=== PATIENT | male | born 1970 | race Caucasian/White ===

== ENCOUNTER → 2018-12-11 | Outpatient (CLI) | payer OTHER ==
[~2018-12-11] MED LIST: FLUO20CA25 PO; HYDR-700 PO; PANT40TA2 PO; TRAZ-222 PO
--- NOTE | 2018-12-11 12:01 | Diagnostic Imaging Report ---
EXAMINATION: Right shoulder at 10:38 a.m. INDICATION: Shoulder pain. TECHNIQUE: Three views were obtained. COMPARISON: There are no prior studies available for comparison. FINDINGS: There is no fracture, dislocation, or acute bony abnormality evident. There is mild degenerative disease of the glenohumeral and acromioclavicular joints. The soft tissues are unremarkable. IMPRESSION: 1. There is no evidence for an acute bony abnormality. 2. If there is clinical concern regarding injury to the rotator cuff or labrum, then MRI would be recommended for further evaluation. Dictated by: Dictated on workstation # [id number]
== END ==
LOC: RAD 10:20
PROVIDERS: ATTEND Nurse Practitioner Family
DX: M25.511 Pain in right shoulder (principal)
CPT/HCPCS: 73030

== ENCOUNTER 2018-12-17 12:48 | Day surgery (SDC) | payer OTHER ==
[2018-12-17] VITALS (18 sets, daily range): BP systolic 119–157; BP diastolic 70–91
[~2018-12-17] VITALS: Ht 188 cm; Wt 96.2 kg
--- NOTE | 2018-12-17 12:57 | Progress Note-Pre Operative ---
Pre-Operative Progress Note H&P Reviewed The H&P was reviewed, patient examined and no changes noted. Date Seen by Provider: Dec 17, 2018 Time Seen by Provider: 12:55 Date H&P Reviewed: Dec 17, 2018 Time H&P Reviewed: 12:55 Pre-Operative Diagnosis: MARY LE MD Dec 17, 2018 12:57
--- NOTE | 2018-12-17 12:57 | Conscious Sedation/ASA ---
Conscious Sedation Pre-Proced Time 12:55 ASA Score 2 For ASA 3 and 4: Consider anesthesia and medical clearance. Also, for patients with a history of failed moderate sedation consider anesthesia. Airway Lungs Heart ASA score ASA 1: a normal healthy patient ASA 2: a patient with a mild systemic disease (mid diabetes, controlled hypertension, obesity ASA 3: a patient with a severe systemic disease that limits activity (angina, COPD, prior Myocardial infarction) ASA 4: a patient with an incapacitating disease that is a constant threat to life (CHF, renal failure) ASA 5: a moribund patient not expected to survive 24 hrs. (ruptured aneurysm) ASA 6: a declared brain- patient whose organs are being harvested. For emergent operations, add the letter E after the classification Mallampati Classification Grade 2 Sedation Plan Analgesia, Amnesia, Plan communicated to team members, Discussed options with patient/fam, Discussed risks with patient/fam The patient is an appropriate candidate to undergo the planned procedure, sedation, and anesthesia. The patient immediately re-assessed prior to indication. MARY RICE MD Dec 17, 2018 12:57
[2018-12-17] MEDS ORDERED: ACETAMINOPHEN 325 MG TABLET PO PRN (13:00)
[2018-12-17] MEDS ORDERED: ONDANSETRON 4 MG/2 ML (SDV) Z0FRAN IVP PRN (13:00)
[2018-12-17] MEDS ORDERED: PANT40TA2 PO (13:00)
[2018-12-17] MEDS ORDERED: HYDROcodone/APAP 5 MG/325 MG (LORTAB) TAB PO PRN (13:00)
[2018-12-17] MEDS ORDERED: morphine INJ 10 MG/ML 1ML (SYR OR VIAL) IVP PRN ×2 (13:00)
--- NOTE | 2018-12-17 13:01 | Discharge Inst-Surgical ---
D/C Lap Instructions-KIDNataly New, Converted, or Re-Newed RX: RX on Chart Follow Up Activity as tolerated High Fiber Diet 25g or more per day Avoid Alcohol, Caffeine, Spicy [place]ickman and Acid foods. Drink 64 fluid oz or more of fluids per day. Symptoms to Report: Fever over 101 degree F, Nausea/Vomiting If any problems/questions: Contact your physician or go to Emergency Room MARY RICE MD Dec 17, 2018 13:01
[2018-12-17] MEDS ORDERED: NS IV 500 ML 500 ML IV PRN (13:29)
[2018-12-17] MEDS ORDERED: HURRICAINE EXT TUBE (BENZOCAINE) XX PRN (13:30)
[2018-12-17] MEDS ORDERED: fentaNYL INJECTION 100 MCG/2 ML AMP IVP ONE (13:30)
[2018-12-17] MEDS ORDERED: LIDOCAINE JELLY 2% 6 ML SYRINGE MM PRN (13:30)
[2018-12-17] MEDS ORDERED: NS IV 500 ML 500 ML ONE (13:33)
[2018-12-17] MEDS ORDERED: HYDR-700 PO (14:09)
[2018-12-17] MEDS ORDERED: FLUO20CA45 PO (14:09)
[2018-12-17] MEDS ORDERED: TRZ50T PO (14:11)
[2018-12-17] MEDS ORDERED: LIDOCAINE JELLY 2% 6 ML SYRINGE ONE (14:40)
[2018-12-17] MEDS ORDERED: MIDAZOLAM 5 MG/5 ML (VERSED) VIAL ONE ×2 (14:40→14:42)
[2018-12-17] MEDS ORDERED: fentaNYL INJECTION 100 MCG/2 ML AMP ONE (14:41)
[2018-12-17] MEDS ORDERED: HURRICAINE EXT TUBE (BENZOCAINE) ONE (14:41)
[2018-12-17] MEDS: MIDAZOLAM 5 MG/5 ML (VERSED) VIAL IV PRN ×6 (15:10→15:24)
--- NOTE | 2018-12-17 16:40 | Progress Note-Post Operative ---
Post-Operative Progess Note Surgeon (s)/Rope Twisting Machine Operator (s) Surgeon MARY RICE MD Rope Twisting Machine Operator: none Pre-Operative Diagnosis GERD Post-Operative Diagnosis reflux esophagitis(stage 2-3), moderate HH(3.5cm), mild-moderate gastritis. Procedure & Operative Findings Date of Procedure 12/17/18 Procedure Performed/Findings EGD with bx. Anesthesia Type cs Estimated Blood Loss Estimated blood loss (mL): minimal Specimens/Packing Specimens Removed ge jxn, antrum MARY RICE MD Dec 17, 2018 16:40
--- NOTE | 2018-12-17 18:29 | OPERATIVE REPORT ---
DATE OF SERVICE: 12/17/2018 ATTENDING PRIMARY CARE PHYSICIAN: Vilma Fowler MD PREOPERATIVE DIAGNOSES: Epigastric pain, gastroesophageal reflux disease. POSTOPERATIVE DIAGNOSES: Reflux esophagitis between stage II and III, moderate size hiatal hernia, 3-3.5 cm in size, mild gastritis. No distal obstructions. PROCEDURE PERFORMED: Esophagogastroduodenoscopy with biopsy. SURGEON: Mary Rice MD. ANESTHESIA: Conscious sedation. ESTIMATED BLOOD LOSS: Minimal. FINDINGS: Reflux esophagitis between stage II and III, moderate size hiatal hernia, 3-3.5 cm in size, mild gastritis. No distal obstructions. DISPOSITION: The patient tolerated the procedure well. INDICATIONS: The patient is a 47-year-old male who has had a 1-month history of worsening epigastric burning sensation as well as reflux type of symptoms. He reports that he has had heartburn for the past 15-20 years and has been taking Prilosec as well as Nexium over the years and states that initially this would work; however, become ineffective over time and did stop both of the medications. He states that he is coming from [facility]; however, due to a lot of stress and anxiety, moved to this area recently. He states that alcohol does make this much worse and has refrained from alcohol since that time. DESCRIPTION OF PROCEDURE: The patient was brought to the endoscopy suite, laid in the left lateral decubitus position. After adequate IV pain and sedative medications and conscious sedation anesthesia, the mouthpiece was applied. The endoscope was then placed in the mouth, visualizing the pharynx and hypopharyngeal region. Vocal cords, epiglottis and vallecula identified and appeared to be normal. Endoscope was then gently intubated. Esophageal opening and esophagus insufflated. The endoscope was then advanced to the first, second and third portion of the esophagus at the level of the GE junction, a reflux esophagitis between stage II and III identified. The GE junction was also intrathoracic consistent with a hiatal hernia. A biopsy was taken with forceps with visualization of good hemostasis. The endoscope was then advanced into the stomach and endoscope retroflexed, visualizing a hiatal hernia, which was moderate in size, approximately 3-3.5 cm. There was a mild to moderate gastritis. No formal ulcerations, polyps, or any neoplasms. A biopsy was taken of the antrum to rule out H. pylori with visualization of good hemostasis. The endoscope was then advanced to the pylorus and the first and second portion of the duodenum, which appeared normal with no distal obstructions. The endoscope was then slowly withdrawn while taking a second look and suctioning of residual air with no additional findings. The patient tolerated the procedure well. We will await the biopsy results; however, he does have significant symptoms and during insufflation of the scope, he did have a major hiccoughing and a significant sized hiatal hernia. We feel that this hiatal hernia is the root of the majority of his symptoms. We will start him on Protonix 40 mg daily as well as Carafate 1 gram q.i.d. However, for long-term asymptomatic relief, he may need a hiatal hernia repair as well as an antireflux procedure. We will discuss this option in the office. Job ID: [id number] DocumentID: [id number] Dictated Date: 12/17/2018 15:39:00 Plant Electrician Date: 12/17/2018 18:28:31 Dictated By: MARY RICE MD
--- NOTE | 2018-12-18 08:13 | HISTORY AND PHYSICAL ---
ATTENDING PHYSICIAN: Vilma Fowler MD PROCEDURE DATE: 12/17/2018. HISTORY OF PRESENT ILLNESS: The patient is a 47-year-old male who is referred over to us for a 1 month history of worsening heartburn and reflux. The patient reports that he has had issues with heartburn and reflux for 15 to 20 years and has taken Prilosec for several years; however, this became ineffective and reports that he stopped the medication. He reports that over the last month his symptoms have become worse and is even having episodes of nausea as well as vomiting and reports he has been taking lots of problems daily. He denies any hematemesis. He does report that he even has symptoms at night and does have to sleep almost upright. He reports that the foods that are acidic or greasy as well as alcohol do trigger his heartburn and reflux as well as discomfort. He reports that he has never had an EGD done before. PAST MEDICAL HISTORY: Anxiety and gastroesophageal reflux disease. PAST SURGICAL HISTORY: Appendectomy at 9 years of age, laparoscopic cholecystectomy in 2017, repair of left arm laceration in 2019, cystoscopy in 2018, wisdom teeth removed in 2003. ALLERGIES: No known drug allergies. MEDICATIONS: Fluoxetine 20 mg, hydroxyzine 25 mg, Tums p.r.n. SOCIAL HISTORY: Negative for smoke, rare for alcohol. FAMILY HISTORY: Mother had diabetes. Father had bladder cancer. VITAL SIGNS: Blood pressure 142/60. Current weight is 215.5, 6 feet 2 inches. REVIEW OF SYSTEMS: A well-nourished male, in no acute distress. He is not experiencing any shortness of breath or difficulty breathing. No chest pain, palpitations or diaphoresis. He does report episodes of nausea and vomiting as well as epigastric burning and discomfort. He does report heartburn and reflux. No hematemesis. No diarrhea or constipation. No red blood per rectum. No dark tarry stools. No fever or chills. No recent overt weight loss. All other review of systems negative. PHYSICAL EXAMINATION: CHEST: Clear. Good breath sounds bilaterally. HEART: Regular, no murmurs. EXTREMITIES: No lower extremity edema. Negative Homans sign. HEENT: No scleral icterus. NECK: No cervical lymphadenopathy. ABDOMEN: Soft, nontender, nondistended. SKIN: Warm, dry and pink. NEUROLOGIC: Awake, alert, oriented x3. ASSESSMENT AND PLAN: A 47-year-old male with a symptomatic gastroesophageal reflux disease versus peptic ulcer disease. At this time, we will recommend proceeding with an EGD. The risks and benefits of the procedure as well as procedure and home care instructions were explained to the patient. The patient verbalized understanding of instructions and agrees to proceed as planned. At this time, we will proceed with scheduling the patient for EGD. Job ID: [id number] DocumentID: [id number] Dictated Date: 12/16/2018 15:31:08 Assistant Chief Nursing Officer Date: 12/16/2018 15:49:10 Dictated By: BAIRON BRYANT APRN <Dictated by BAIRON BRYANT APRN> <Electronically signed by MARY RICE MD> 12/17/18 0935 [facility]
--- OUTSIDE RECORDS SUMMARY | 2019-01-09 13:41 | XMS REPORT | Continuity of Care Document ---
Author Organization Unknown POS Address Unknown SP Phone Unavailable SP Allergies Active Description Code Type Severity POS Reaction Onset Reported/Identified POS to Patient Clinical Status POS Yes No Known Drug Allergies [id number] Drug SP Unknown N/A 12/17/2018 SP SP Medications There is no data. Problems Date Dx Coded Attending Type Code POS Diagnosed By POS 12/17/2018 KAREN BARKER Ot M25.511 SP PAIN IN RIGHT SHOULDER SP 12/17/2018 MARY RICE MD Ot B96.81 SP PYLORI THE CAUSE OF DISE SP 12/17/2018 MARY RICE MD Ot F41.9 SP DISORDER, UNSPECIFIED SP 12/17/2018 MARY RICE MD Ot K21.0 SPESOPHAGEAL REFLUX DISEASE WITH ES SP 12/17/2018 MARY RICE MD Ot K22.10 SP OF ESOPHAGUS WITHOUT BLEEDING SP 12/17/2018 MARY RICE MD Ot K29.50 SP CHRONIC GASTRITIS WITHOUT BL SP 12/17/2018 MARY RICE MD Ot K44.9 SP HERNIA WITHOUT OBSTRUCTION SP 12/17/2018 MARY RICE MD Ot Z79.89 9 SP KEY ACCOUNT EXECUTIVE (CURRENT) DRUG THERAPY SP 12/17/2018 MARY RICE MD Ot Z80.52 SP HISTORY OF MALIGNANT NEOPLASM OF SP 12/17/2018 MARY RICE MD Ot Z83.3 SP HISTORY OF DIABETES MELLITUS SP 12/17/2018 MARY RICE MD Ot Z90.49 SP ABSENCE OF OTHER SPECIFIED PART SP 12/29/2018 MARY RICE MD Ot B96.81 SP PYLORI THE CAUSE OF DISE SP 12/29/2018 MARY RICE MD Ot F41.9 SP DISORDER, UNSPECIFIED SP 12/29/2018 MARY RICE MD Ot K21.0 SPESOPHAGEAL REFLUX DISEASE WITH ES SP 12/29/2018 KIDO MD, TAKAAKI Ot K22.10 SP OF ESOPHAGUS WITHOUT BLEEDING SP 12/29/2018 MARY RICE MD Ot K29.50 SP CHRONIC GASTRITIS WITHOUT BL SP 12/29/2018 AMRY RICE MD, Ot K44.9 SP HERNIA WITHOUT OBSTRUCTION SP 12/29/2018 MARY RICE MD, Ot Z79.89 9 SP KEY ACCOUNT EXECUTIVE (CURRENT) DRUG THERAPY SP 12/29/2018 MARY RICE MD, Ot Z80.52 SP HISTORY OF MALIGNANT NEOPLASM OF SP 12/29/2018 MARY RICE MD Ot Z83.3 SP HISTORY OF DIABETES MELLITUS SP 12/29/2018 MARY RICE MD, Ot Z90.49 SP ABSENCE OF OTHER SPECIFIED PART SP 12/29/2018 KAREN BARKER Ot M25.511 SP PAIN IN RIGHT SHOULDER SP Procedures There is no data. Results There is no data. Encounters ACCT No. Visit Date/Time Discharge Status POS Pt. Type Provider Facility Loc./Un it POS Complaint POS [id number] 12/09/2018 11:47:17 12/09/2018 23:59:5 9 CLS SP Outpatient SP [id number] 01/01/2019 12:16:00 23:59:59 SP CLS Outpatient LASHELL VALENTINE, MATHIEU Chaidez [facility] RAD RT SHOULDER PAIN,HX LT ROTATOR SP INJURY [id number] 12/17/2018 12:48:00 16:35:00 SP DIS Outpatient MARY RICE MD [facility] ENDO REFLUX/HEARTBURN SP [id number] 12/11/2018 10:20:00 23:59:59 SP CLS Outpatient KAREN BARKER [facility] RAD R SHOULDER PAIN SP
== END 2018-12-17 16:35 | disposition home or self-care (01) ==
LOC: ENDO 12:48
PROVIDERS: ATTEND Surgery
DX: K29.50 Unspecified chronic gastritis without bleeding (principal); B96.81 Helicobacter pylori [H. pylori] as the cause of diseases classified elsewhere; K22.10 Ulcer of esophagus without bleeding; K21.0 Gastro-esophageal reflux disease with esophagitis; K44.9 Diaphragmatic hernia without obstruction or gangrene; F41.9 Anxiety disorder, unspecified; Z90.49 Acquired absence of other specified parts of digestive tract; Z83.3 Family history of diabetes mellitus; Z80.52 Family history of malignant neoplasm of bladder; Z79.899 Other long term (current) drug therapy
CPT/HCPCS: 88305; 88312; 88342

== ENCOUNTER → 2019-01-01 | Outpatient (CLI) | payer OTHER ==
[~2019-01-01] MED LIST changes: -FLUO20CA25 PO; +FLUO20CA45 PO; -TRAZ-222 PO; +TRZ50T PO
--- NOTE | 2019-01-01 13:42 | Diagnostic Imaging Report ---
MRI LT UPPER EXT JOINT W/O Technique: Multiplanar, multisequence MR imaging of the left shoulder was performed without contrast. Comparison: None available Indication: Left shoulder pain. Findings: Rotator cuff: No rotator cuff tear, tendinopathy or muscle atrophy. Glenoid labrum: Mild truncation of the posterior superior labrum may be physiologic versus a nondisplaced tear. Long head of biceps: Long head of biceps is normally positioned within the bicipital groove. The intracapsular segment is intact. Bones and cartilage: Humeral head is normal in morphology without fracture or focal osseous lesion. No glenohumeral chondromalacia. The acromioclavicular joint is normal in alignment without significant degenerative change. Soft tissues: No glenohumeral joint effusion. No MRI findings to suggest adhesive capsulitis. No fluid or inflammatory like signal within the subacromial/subdeltoid space to indicate bursitis. IMPRESSION: 1. Potential nondisplaced tear in the posterior superior labrum. Correlation with symptoms of labral tear is suggested. If it will alter the patient's management, consider MR arthrogram for further evaluation. 2. No rotator cuff tear. 3. Long head of the biceps is normal. Dictated by: Dictated on workstation # [id number]
--- NOTE | 2019-01-01 14:02 | Diagnostic Imaging Report ---
MRI RT UPPER EXT JOINT W/O TECHNIQUE: Multiplanar, multisequence MR imaging of the right shoulder was performed without contrast. COMPARISON: Right shoulder radiographs of 12/11/2018. INDICATION: Right shoulder pain. FINDINGS: Rotator cuff: Supraspinatus has mild tendinopathy but is intact. Infraspinatus, teres minor and subscapularis are normal. No rotator cuff muscle atrophy or edema. Glenoid labrum: By non-arthrogram imaging, the glenoid labrum appears intact. No para-labral cyst. Long head of biceps: Long head of biceps is normally positioned within the bicipital groove. The intracapsular segment is intact. Bones and cartilage: Humeral head is normal in morphology without fracture or focal osseous lesion. No glenohumeral chondromalacia. The acromioclavicular joint is normal in alignment without significant degenerative change. Soft tissues: No glenohumeral joint effusion. No MRI findings to suggest adhesive capsulitis. Mild subacromial/subdeltoid bursitis. IMPRESSION: 1. Tendinopathy of supraspinatus without superimposed tear. 2. Mild subacromial/subdeltoid bursitis. Dictated by: Dictated on workstation # [id number]
== END ==
LOC: RAD 12:16
PROVIDERS: ATTEND Family Medicine
DX: S43.432A Superior glenoid labrum lesion of left shoulder, initial encounter (principal); M75.91 Shoulder lesion, unspecified, right shoulder; M75.51 Bursitis of right shoulder
CPT/HCPCS: 73221

== ENCOUNTER → 2019-01-12 | Outpatient (CLI) | payer OTHER ==
[~2019-01-12] MED LIST changes: +FLUO20CA25 PO; -FLUO20CA45 PO; +TRAZ-222 PO; -TRZ50T PO
--- NOTE | 2019-01-12 13:02 | Diagnostic Imaging Report ---
INDICATION: Pain status post remote injury of the knees. COMPARISON: None. FINDINGS: Multiple radiographic views of the bilateral knee joints were obtained and demonstrate no acute fracture or dislocation. No focal osseous lesions are seen. No significant joint effusion is seen. The surrounding soft tissue structures are unremarkable. There are no radiopaque foreign bodies. IMPRESSION: 1. Unremarkable radiographic exam of the bilateral knees. Dictated by: Dictated on workstation # [id number]
== END ==
LOC: RAD 11:42
PROVIDERS: ATTEND Family Medicine
DX: M25.561 Pain in right knee (principal); M25.562 Pain in left knee; Z87.828 Personal history of other (healed) physical injury and trauma

== ENCOUNTER → 2019-01-21 | Outpatient (CLI) | payer OTHER ==
--- NOTE | 2019-01-21 16:29 | Diagnostic Imaging Report ---
EXAMINATION: Magnetic resonance imaging of the right knee without intravenous contrast. DATE: January 21, 2019. COMPARISON: Knee radiographs January 12, 2019. INDICATION: 48-year-old male, right knee pain. TECHNIQUE: Multiplanar, multisequence noncontrast enhanced MR imaging was accomplished. FINDINGS: MENISCI: The medial meniscus is intact. The lateral meniscus is intact. LIGAMENTS AND TENDONS: The anterior and posterior cruciate ligaments are intact. The medial collateral ligament is intact. The iliotibial band, mid third lateral capsular ligament, fibular collateral ligament, biceps femoris tendon, and conjoined tendon are intact. There are areas of ossification in the distal aspect of the patellar tendon, most likely relating to sequela of remote prior insult or prior procedural changes. There is no tear of the patellar tendon. The distal quadriceps tendon is intact. JOINT: The articular cartilage surfaces are intact. There is no knee joint effusion, prominent synovitis, or intra-articular body. BONE: There is no acute fracture, bone contusion, or evidence of osteonecrosis. BURSAE AND SOFT TISSUES: No Bakers cyst. IMPRESSION: 1. Areas of ossification within the inferior aspect of the patellar tendon, most likely relating to sequela of remote prior insult or procedural related changes. There is no tear of the patellar tendon. Additional tendons are intact. 2. Intact menisci and cruciate ligaments. Additional ligaments are intact. 3. No acute fracture, bone contusion, or evidence of osteonecrosis. 4. Intact articular cartilage. No knee joint effusion. Dictated by: Dictated on workstation # [id number]
== END ==
LOC: RAD 15:15
PROVIDERS: ATTEND Nurse Practitioner Family
DX: M67.863 Other specified disorders of tendon, right knee (principal); M25.561 Pain in right knee
CPT/HCPCS: 73721

== ENCOUNTER 2019-12-30 05:34 | Outpatient (RCR) | payer OTHER ==
[~2019-12-30] VITALS: Ht 187 cm; Wt 109.9 kg
[~2019-12-30 05:34] MED LIST changes: -FLUO20CA25 PO; +FLUO20CA46 PO; -TRAZ-222 PO; +TRZ50T PO
[2019-12-30] MEDS ORDERED: VARE1TAB21 PO (13:44)
== END 2019-12-30 13:48 | disposition home or self-care (01) ==
LOC: PREOP 05:34
PROVIDERS: ATTEND Surgery
DX: Z01.812 Encounter for preprocedural laboratory examination (principal); Z20.828 Contact with and (suspected) exposure to other viral communicable diseases
CPT/HCPCS: 87635

== ENCOUNTER 2020-01-01 08:58 | Day surgery (SDC) | payer OTHER ==
[~2020-01-01] VITALS: Ht 187 cm; Wt 109.9 kg
[2020-01-01] VITALS (11 sets, daily range): BP systolic 121–137; BP diastolic 57–84
[~2020-01-01 08:58] MED LIST changes: +VARE1TAB21 PO
[2020-01-01] MEDS ORDERED: NS IV 500 ML 500 ML ONE (09:02)
[2020-01-01] MEDS ORDERED: NS IV 500 ML 500 ML IV PRN (09:03)
[2020-01-01] MEDS ORDERED: fentaNYL INJECTION 100 MCG/2 ML AMP IVP ONE (09:15)
[2020-01-01] MEDS ORDERED: HURRICAINE EXT TUBE (BENZOCAINE) XX PRN (09:15)
[2020-01-01] MEDS ORDERED: LIDOCAINE JELLY 2% 6 ML SYRINGE MM PRN (09:15)
[2020-01-01] MEDS ORDERED: DEXL60CA PO (09:23)
--- NOTE | 2020-01-01 09:43 | Conscious Sedation/ASA ---
Conscious Sedation Pre-Proced Time 09:40 ASA Score 2 For ASA 3 and 4: Consider anesthesia and medical clearance. Also, for patients with a history of failed moderate sedation consider anesthesia. Airway Lungs Heart ASA score ASA 1: a normal healthy patient ASA 2: a patient with a mild systemic disease (mid diabetes, controlled hypertension, obesity ASA 3: a patient with a severe systemic disease that limits activity (angina, COPD, prior Myocardial infarction) ASA 4: a patient with an incapacitating disease that is a constant threat to life (CHF, renal failure) ASA 5: a moribund patient not expected to survive 24 hrs. (ruptured aneurysm) ASA 6: a declared brain- patient whose organs are being harvested. For emergent operations, add the letter E after the classification Mallampati Classification Grade 2 Sedation Plan Analgesia, Amnesia, Plan communicated to team members, Discussed options with patient/fam, Discussed risks with patient/fam The patient is an appropriate candidate to undergo the planned procedure, sedation, and anesthesia. The patient immediately re-assessed prior to indication. MARY RICE MD Jan 01, 2020 09:43
--- NOTE | 2020-01-01 09:43 | Progress Note-Pre Operative ---
Pre-Operative Progress Note H&P Reviewed The H&P was reviewed, patient examined and no changes noted. Date Seen by Provider: Jan 01, 2020 Time Seen by Provider: :40 Date H&P Reviewed: Jan 01, 2020 Time H&P Reviewed: :40 Pre-Operative Diagnosis: MARY LE MD Jan 01, 2020 09:43
[2020-01-01] MEDS ORDERED: ACETAMINOPHEN 325 MG TABLET PO PRN (09:45)
[2020-01-01] MEDS ORDERED: HYDROcodone/APAP 5 MG/325 MG (LORTAB) TAB PO PRN (09:45)
[2020-01-01] MEDS ORDERED: ONDANSETRON 4 MG/2 ML (SDV) Z0FRAN IVP PRN (09:45)
[2020-01-01] MEDS ORDERED: morphine INJ 10 MG/ML 1ML (SYR OR VIAL) IVP PRN ×2 (09:45)
--- NOTE | 2020-01-01 09:47 | Discharge Inst-Surgical ---
D/C Lap Instructions-DWAYNE Follow Up Activity as tolerated High Fiber Diet 25g or more per day Avoid Alcohol, Caffeine, Spicy Bazine and Acid foods. Drink 64 fluid oz or more of fluids per day. Symptoms to Report: Fever over 101 degree F, Nausea/Vomiting If any problems/questions: Contact your physician or go to Emergency Room MARY RICE MD Jan 01, 2020 09:47
[2020-01-01] MEDS ORDERED: MIDAZOLAM 5 MG/5 ML (VERSED) VIAL ONE ×2 (10:10)
[2020-01-01] MEDS ORDERED: LIDOCAINE JELLY 2% 6 ML SYRINGE ONE (10:10)
[2020-01-01] MEDS ORDERED: fentaNYL INJECTION 100 MCG/2 ML AMP ONE (10:11)
[2020-01-01] MEDS ORDERED: HURRICAINE EXT TUBE (BENZOCAINE) ONE (10:11)
[2020-01-01] MEDS ORDERED: MIDAZOLAM 5 MG/5 ML (VERSED) VIAL IV ONE (10:45)
--- NOTE | 2020-01-01 13:13 | Progress Note-Post Operative ---
Post-Operative Progess Note Surgeon (s)/Bedspring Assembler (s) Surgeon MARY RICE MD Bedspring Assembler: none Pre-Operative Diagnosis GERD Post-Operative Diagnosis reflux esophagitis(stage 3), small-moderate HH(3cm), moderate gastritis. Procedure & Operative Findings Date of Procedure 01/01/20 Procedure Performed/Findings EGD with bx. Anesthesia Type cs Estimated Blood Loss Estimated blood loss (mL): minimal Specimens/Packing Specimens Removed ge jxn, antrum MARY RICE MD Jan 01, 2020 13:13
--- NOTE | 2020-01-01 20:39 | OPERATIVE REPORT ---
DATE OF SERVICE: 01/01/2020 ATTENDING PRIMARY CARE PHYSICIAN: Vilma Fowler MD PREOPERATIVE DIAGNOSIS: Persistent gastroesophageal reflux disease. POSTOPERATIVE DIAGNOSES: Reflux esophagitis stage III, moderate size hiatal hernia 3 cm in size, moderate severity gastritis. PROCEDURE: EGD with biopsy. SURGEON: Mary Rice MD ANESTHESIA: Conscious sedation. ESTIMATED BLOOD LOSS: Minimal. FINDINGS: Reflux esophagitis stage III, moderate size hiatal hernia 3 cm in size, moderate severity gastritis. DISPOSITION: The patient tolerated the procedure well. INDICATIONS: The patient is a 49-year-old male known to us. We had seen him in 2019 for epigastric pain and reflux type of symptoms. He had reported a longstanding history of reflux for the past 20 years and has been taking Prilosec and Nexium as well as other medications. He states that all of these have been ineffective over time. He is originally from [facility] and removed in 2019, underwent an EGD with biopsy and was found to have a reflux esophagitis between stage II and III, moderate size hiatal hernia 3 cm in size as well as a mild gastritis. Biopsies were positive for H. pylori as well as positive for fungus at that time and he was adequately treated. He states that in the past two months, he has had worsening heartburn again and is currently on Protonix as well as Carafate, but he states that this is ineffective. DESCRIPTION OF PROCEDURE: The patient was brought to the endoscopy suite, laid in the left lateral decubitus position. After adequate IV pain and stated medications and conscious sedation anesthesia, the mouthpiece was applied. The endoscope was then placed in the mouth, visualizing the pharynx and hypopharyngeal region. Vocal cords, epiglottis and vallecula identified and appeared to be normal. The endoscope was then gently intubated into the esophageal opening and esophagus insufflated. The endoscope was then advanced to the first, second and third portion of the esophagus at the level of the GE junction, a reflux esophagitis stage III identified with a small ulceration also identified. A biopsy was taken with forceps with visualization of good hemostasis. The GE junction was also intrathoracic consistent with a hiatal hernia. The endoscope was then advanced into the stomach and endoscope retroflexed, visualizing a moderate size hiatal hernia, 3 to 3.5 cm in size. There was a moderate to severe severity gastritis more towards the stomach antrum. No formal ulcerations, polyps, or any neoplasms. A biopsy was taken of the antrum to rule out H. pylori with visualization of good hemostasis. The endoscope was then advanced to the pylorus and the first and second portion of the duodenum, which appeared normal. The endoscope was then slowly withdrawn while taking a second look and suctioning of residual air with no additional findings. The patient tolerated the procedure well. It appears as though he does have continued gastritis as well as reflux esophagitis, exacerbated by the hiatal hernia. We will recommend the necessary lifestyle and diet accommodation including small and more frequent meals, avoidance of eating at night as well as head elevation while lying supine. He also needs to avoid caffeinated beverages, spicy, greasy and acidic foods. We will also increase his PPI acid inspector ball points to a b.i.d. basis; however, due to his symptoms, he may have a reoccurrence of Helicobacter pylori and we will empirically treat him with another two rounds of antibiotics with clarithromycin 500 mg b.i.d. as well as metronidazole 500 mg b.i.d. as well as the proton pump inhibitor on a b.i.d. basis. He also does have a significant hiatal hernia. If he continues to have issues with reflux and regurgitation despite maximal medical therapy, he may be a candidate for hiatal hernia repair as well as an antireflux procedure for which we would proceed with further testing including an esophageal manometry to rule out an esophageal dysmotility disorder. Job ID: [id number] DocumentID: [id number] Dictated Date: 01/01/2020 10:39:07 Car Checker Date: 01/01/2020 20:39:47 Dictated By: MARY RICE MD
== END 2020-01-01 11:25 | disposition home or self-care (01) ==
LOC: ENDO 08:58
PROVIDERS: ATTEND Surgery
DX: K29.50 Unspecified chronic gastritis without bleeding (principal); K21.00 Gastro-esophageal reflux disease with esophagitis, without bleeding; K44.9 Diaphragmatic hernia without obstruction or gangrene; F41.9 Anxiety disorder, unspecified; Z79.899 Other long term (current) drug therapy; Z83.3 Family history of diabetes mellitus; Z80.52 Family history of malignant neoplasm of bladder
CPT/HCPCS: 88305; 88342